=== PATIENT | female | born 1965 | race Hispanic/Latino ===

== ENCOUNTER 2021-03-31 08:05 | Observation (INO) | payer OTHER ==
--- NOTE | 2021-03-28 14:27 | RAD REPORT ---
EXAM DESCRIPTION: RAD - Chest Pa And Lat (2 Views) - 03/28/2021 2:18 pm CLINICAL HISTORY: pre-op Chest pain. COMPARISON: Chest Pa And Lat (2 Views) dated 07/04/2017; Chest Pa And Lat (2 Views) dated 07/02/2017; CH EST SINGLE VIEW dated 02/24/2008; CHEST SINGLE VIEW dated 02/22/2008; Abdomen Pelvis W Contrast dated 03/19/2021; CHEST SINGLE VIEW dated 02/10/2008 FINDINGS: Elevated right hemidiaphragm is present, unchanged. Left lung is grossly clear. The heart is normal in size. No displaced fractures. IMPRESSION: Stable chest since 07/04/2017.
[2021-03-28 14:31] LABS: Absolute Lymphocytes (CBC) 1.4 K/uL (0.7-4.9); Basophils % 0.9 % (0-1.3); Hematocrit 45.4 % (36.0-45.0); Lymphocytes % 19.6 % (15.3-44.8); MPV 8.1 fL (7.6-11.3); RBC Red Blood Cell Count 4.37 M/uL (3.86-4.86)
[2021-03-28 14:45] LABS: Potassium 3.9 mmol/L (3.5-5.1)
[2021-03-31] MEDS: Ringers Lactate 1,000 ML IV ONE ×2 (08:30→08:59)
[2021-03-31] MEDS ORDERED: CIPROFLOXACIN 400mg IV 400 MG/200 ML BAG IV ONE (08:59)
[2021-03-31] MEDS ORDERED: dexAMETHasone 10 MG/ML VIAL ONE ×2 (09:27→11:06)
[2021-03-31] MEDS ORDERED: ROCURONIUM 50 MG/5 ML VIAL IV ONE (09:27)
[2021-03-31] MEDS ORDERED: FENTANYL CITR 100 MCG/2 ML ONE (09:27)
[2021-03-31] MEDS ORDERED: propofoL 200 MG/20 ML VIAL IV ONE (09:27)
[2021-03-31] MEDS ORDERED: LIDOCAINE 2% MPF 5 ML VIAL ONE (09:28)
[2021-03-31] MEDS ORDERED: MIDAZOLAM HCL 2 MG/2 ML INJ ONE (09:28)
[2021-03-31] MEDS ORDERED: KETOROLAC 30 MG/ML INJ ONE (09:28)
[2021-03-31] MEDS ORDERED: ONDANSETRON 4 MG/2 ML VIAL ONE (09:28)
[2021-03-31] MEDS ORDERED: Phenylephrine HCl 10 MG/ML 1 ML VIAL ONE (10:18)
[2021-03-31] MEDS ORDERED: NS 0.9% VIAL 10 ML ONE ×2 (10:18→11:09)
[2021-03-31] MEDS ORDERED: EPHEDRINE SULF 50 MG/ML VIAL ONE (10:18)
[2021-03-31] MEDS ORDERED: SODIUM CHLORIDE 0.9% 10ML INJ IV PRN (10:56)
[2021-03-31] MEDS ORDERED: MORPHINE 2 MG/ML SYR IM PRN (10:56)
[2021-03-31] MEDS ORDERED: ONDANSETRON 4 MG/2 ML VIAL IV PRN (10:56)
--- NOTE | 2021-03-31 10:56 | P.BOP ---
Preoperative diagnosis: abd pain. incarcerated epigastric incisional ventral hernia and umbilical h Postoperative diagnosis: same, Down symdrome, morbid obesity, COPD, extensive intrab adhesions Primary procedure: 1. Laparocopic repair incarcerated epigastric incisional ventral hernia Secondary procedure: 2. Laparocopic repair incarcerated umbilical hernia Other procedure(s): 3. 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
[2021-03-31] MEDS ORDERED: BUPIVACAINE 0.5% PF 10 ML VIAL ONE (11:01)
[2021-03-31] MEDS ORDERED: BUPIVACAINE 0.25% PF 10 ML VIAL ONE (11:05)
[2021-03-31] MEDS ORDERED: NS 0.9% VIAL 20 ML ONE (11:07)
[2021-03-31] MEDS ORDERED: GLYCOPYRROLATE 0.2 MG/ML SYR ONE (11:31)
[2021-03-31] MEDS ORDERED: Ringers Lactate 1,000 ML IV ONE (11:35)
[2021-03-31] MEDS ORDERED: NEOSTIGMINE 1 MG/ML -5 ML ONE (11:36)
[2021-03-31 11:48] VITALS: O2SAT 94
--- NOTE | 2021-03-31 12:05 | OP ---
Date of Procedure: 03/31/2021 Surgeon: Alberto Martinez MD Lead Cook: FARZANEH Piecre. Preoperative Diagnoses: Abdominal pain, incarcerated epigastric incisional ventral hernia, incarcera pepe umbilical hernia, Down syndrome, morbid obesity, chronic obstructive pulmonary disease. Postoperative Diagnoses: Abdominal pain, incarcerated epigastric incisional ventral hernia, incarcer ated umbilical hernia, Down syndrome, morbid obesity, chronic obstructive pulmonary disease plus exte nsive intraabdominal adhesions. Procedures: 1.Laparoscopic repair of incarcerated epigastric incisional ventral hernia. 2.Laparoscopic repair of incarcerated umbilical hernia. 3.Laparoscopic extensive lysis of adhesions. Specimen: Hernia sac. Findings: The patient has extensive intraabdominal adhesions. She has what looked like an open chol ecystectomy done with a very large incision in the right upper side. There is a hernia present at th e medial side of that incision and epigastric area. All these adhesions have to be removed in order for us to visualize the region, especially when she is having abdominal pain in that area. She is mo rbidly obese, a lot of fatty tissue in the omentum that she will have to control that in the future. She also has an umbilical hernia with incarcerated omentum on it. Indication: This is the case of a female, who comes to us with abdominal pain and 2 hernias. Imagin g was done. She has history of Down syndrome with nonverbal, pain. The sister is a power of attorne y at this moment. The pain was getting worse, the hernia is getting bigger. So after discussion wit h the patient and the sister, they want the hernia is repaired. The plan was for laparoscopic possib le open repair of ventral and umbilical hernia with possible mesh with benefits, alternatives, and ri sks include, but not limited to infection, bleeding, damage to adjacent structures, anesthesia compli cation, recurrence, SC, and even . She also understands this may not relieve any symptoms. She might need more than one surgical intervention. She also understands the importance of losing weigh t. She signed a consent. Procedure In Detail: The patient was brought to the operating room, placed in supine position. Anes thesia was done without complication. Abdominal area was prepped and draped in usual sterile fashion . Local anesthesia was applied followed by sharp incision of the skin, first in the supraumbilical a marj. The incision was carried down to fascia. We noticed the patient to have a hernia sac, so we op ened the hernia sac, noticed incarcerated omentum, removed some adhesions from that area to be able t o open the defect, clean the fascial edges, place Vicryl #1 inside the fascia and then a Naomi troca r was carefully introduced. This allowed me to see the extension of her disease, a lot of adhesions in the abdomen right upper quadrant, unable to fix the hernia unless we get those out, so I placed 2 more trocars, 5 mm each one of them on the lateral side of the abdomen and using the LigaSure, we pro ceeded to mitotically just slowly just to do lysis of adhesions. There was some bowel attached to th e anterior abdominal wall and was carefully released without any enterotomies. Hemostasis was obtain ed at all times. Once we cleared those adhesions that took more than half the case, we proceeded the n to visualize the area. We have an umbilical defect in the incisional region on the epigastric area . The fascial edges were clean. We proceeded to make a tiny incision on the epigastric area to assi stance with bridging the fascial edges together. We closed the fascial edges with #1 Vicryl in a fig [id number] fashion multiple times until the defect completely closed. The area was irrigated. Her kenrick sac was previously reduced back into the abdominal cavity and content. After that, we then check ed the area of the lysis of adhesion, checked the hernia and looked intact. We proceeded to remove t he trocars under direct vision and we already set up the umbilical area by putting stitches on it, so in a way out and we proceeded then to close the defect of the umbilical region. A 3-0 chromic used for subcutaneous closure and then the skin with luzma. Sponge count and instrument counts correct. The patient tolerated the procedure well. The patient was sent to recovery in stable condition. W ith the extensive intraabdominal adhesions in this patient with multiple hernias with fixed incisiona l and ventral umbilical hernia, we expect this patient to have an ileus and to have postoperative joyce n. She is morbidly obese. She has COPD. She has Down syndrome. It is difficult to communicate verbally, so I believe this patient should be admitted for pain control and observation 2 3 hours. RIO/VIOLETTE Voice ID: [id number] Report ID: [id number]
[2021-03-31 13:02] VITALS: BMI 49.6
[2021-03-31] MEDS: NA CHLORIDE 0.9% 1,000 ML IV SCH (13:08)
[2021-03-31] MEDS: CIPROFLOXACIN 400mg IV 400 MG/200 ML BAG IV SCH (19:52)
[2021-03-31] MEDS: CODEINE 30MG/APAP 300MG TAB PO PRN (19:52)
[2021-04-01] MEDS: CODEINE 30MG/APAP 300MG TAB PO PRN ×2 (00:32→10:40)
[2021-04-01] MEDS: NA CHLORIDE 0.9% 1,000 ML IV SCH (04:27)
[2021-04-01 06:01] LABS: Absolute Lymphocytes (CBC) 0.4 K/uL (0.7-4.9); Basophils % 0.1 % (0-1.3); Hematocrit 40.4 % (36.0-45.0); Lymphocytes % 3.5 % (15.3-44.8); MPV 8.5 fL (7.6-11.3); RBC Red Blood Cell Count 3.85 M/uL (3.86-4.86)
[2021-04-01 06:21] LABS: Potassium 4.1 mmol/L (3.5-5.1)
[2021-04-01 07:36] LABS: Anisocytosis 1+; Blood Morphology Comment NOTED (NOT SEEN); Macrocytosis 1+; Platelet Estimate ADEQ; White Blood Cell Scan OK (OK)
[2021-04-01] MEDS: CIPROFLOXACIN 400mg IV 400 MG/200 ML BAG IV SCH (08:35)
[2021-04-01] MEDS ORDERED: PANTOPRAZOLE 40 MG INJ IVP SCH (09:00)
--- NOTE | 2021-04-01 12:39 | P.DS ---
Admission Date: 03/31/21 Discharge Date: 04/01/21 Disposition: ROUTINE DISCHARGE Discharge Condition: GOOD Vital Signs/Physical Exam: Temp Pulse Resp BP Pulse Ox 97.1 F 68 22 H 98/46 L 92 04/01/21 08:00 04/01/21 08:00 04/01/21 11:40 04/01/21 08:00 04/01/21 11:40 General: Alert, In no apparent distress, Cooperative HEENT: PERRLA Neck: Supple Respiratory: Normal air movement Cardiovascular: No edema Gastrointestinal: Normal bowel sounds, Soft and benign Musculoskeletal: No contractures, No erythema, No tenderness, No warmth Integumentary: No rashes, No breakdown Neurological: Normal speech Laboratory Data at Discharge: WBC 10.90 K/uL (4.3-10.9) D 04/01/21 05:26 Hgb 13.5 g/dL (12.0-15.0) 04/01/21 05:26 Hct 40.4 % (36.0-45.0) 04/01/21 05:26 Plt Count 234 K/uL (152-406) 04/01/21 05:26 Sodium 141 mmol/L (136-145) 04/01/21 05:26 Potassium 4.1 mmol/L (3.5-5.1) 04/01/21 05:26 BUN 9 mg/dL (7-18) 04/01/21 05:26 Creatinine 0.83 mg/dL (0.55-1.3) 04/01/21 05:26 Glucose 174 mg/dL (74-106) H 04/01/21 05:26 Home Medications: Ciprofloxacin HCl [Cipro 500 MG Tablet] 500 mg PO BID #10 tab 04/01/21 Codeine/APAP [Tylenol #3*] 1 tab PO Q4H PRN #20 tab 04/01/21 New Medications: Ciprofloxacin HCl [Cipro 500 MG Tablet] 500 mg PO BID #10 tab Codeine/APAP [Tylenol #3*] 1 tab PO Q4H PRN #20 tab PRN Reason: Pain Scale 5-7 (Moderate) Diet: ADA Activity: No lifting more than 10 lbs Followup: Alberto Martinez MD [ACTIVE - CAN ADMIT] - 1 Week
[2021-04-01 13:16] VITALS: BP 97/54; TEMP 97.3
== END 2021-04-01 12:48 | disposition home or self-care (01) ==
LOC: OR 08:05 → 2ND 11:54
PROVIDERS: ADMIT Surgery; ATTEND Surgery
PROC: 0WQF4ZZ Repair Abdominal Wall, Percutaneous Endoscopic Approach (ICD-10-PCS; 2021-03-31)
PROC: 0DNW4ZZ Release Peritoneum, Percutaneous Endoscopic Approach (ICD-10-PCS; 2021-03-31)
PROC: 0WQF4ZZ Repair Abdominal Wall, Percutaneous Endoscopic Approach (ICD-10-PCS; principal; 2021-03-31 09:45)
DX: K43.0 Incisional hernia with obstruction, without gangrene (principal); K42.0 Umbilical hernia with obstruction, without gangrene; K66.0 Peritoneal adhesions (postprocedural) (postinfection); J44.9 Chronic obstructive pulmonary disease, unspecified; Q90.9 Down syndrome, unspecified; E66.01 Morbid (severe) obesity due to excess calories; Z68.42 Body mass index [BMI] 45.0-49.9, adult; Z88.0 Allergy status to penicillin; Z20.822 Contact with and (suspected) exposure to COVID-19; Z82.49 Family history of ischemic heart disease and other diseases of the circulatory system; Z80.9 Family history of malignant neoplasm, unspecified
CPT/HCPCS: 49655; 85025 ×2; 80048 ×2; 36415 ×2; 88302; 71046; 97116; 97161; 49653; 49329; U0003; J2704; J2370; J2250; J3010; J1100 ×2; J2270; J2710; J7120 ×2; J7030 ×2; J2405; J0744 ×3; G0379; G0378 ×2; C9113